=== PATIENT | male | born 1990 | race Caucasian/White ===

== ENCOUNTER 2021-08-29 19:32 | Emergency (ER) | payer OTHER ==
[2021-08-29] MEDS ORDERED: SODIUM CHLORIDE 0.9% 1,000 ML IV STA (19:37)
[2021-08-29] MEDS ORDERED: LORazepam 2 MG/ML INJ IV STA (19:37)
--- NOTE | 2021-08-29 19:41 | ED ---
Seizure HPI - General Stated Complaint: Seizure Time Seen by Provider: 08/29/21 19:33 Source: patient, EMS, RN notes reviewed - History of Present Illness Initial Comments: This is a pleasant 31-year-old male who is currently at rehabilitation at [facility] for heroin use. Patient states she has been there for 3 days. Patient states he has not used for 3 days. Patient has no history of seizure disorder but states he was getting ready to go have a cigarette. He states that Sil[place] he remembers. Patient barely had 2 witnessed seizure activities, lasting about 1 minute and then at 1842 another one lasting about 5 minutes. This was tonic-clonic activity. Patient did have several minutes of postictal state. Patient denies any pain. Denying any head injury. Patient states he did fall during seizure may have hit his head. No vision or hearing disturbance. No numbness or tingling. No focal neurologic deficits. No headache, no fever or chills, no changes in vision or hearing, no sore throat or difficulty with speech, no neck pain, no chest pain or shortness of breath, no abdominal pain, no nausea or vomiting, no changes in urination or bowel movements, no numbness or tingling, no extremity pain, no skin rashes or lesions. MD Complaint: seizure - Related Data Home Medications Medication Instructions Recorded Confirmed Acetaminophen Tab [Tylenol] 650 mg PO TID PRN 08/29/21 08/29/21 Calcium, Magnesium, Zinc, With 1 tab PO TID PRN 08/29/21 08/29/21 Vitamin D3 Chlorpheniramine Maleate 4 mg PO Q4H PRN 08/29/21 08/29/21 Hyoscyamine Sulfate [Levsin] 0.125 mg PO QID PRN 08/29/21 08/29/21 Ibuprofen [Motrin Ib] 600 mg PO Q6H PRN 08/29/21 08/29/21 Loperamide HCl [Imodium A-D] 4 mg PO QID PRN 08/29/21 08/29/21 Multivitamins, Thera [Multivitamin 1 tab PO DAILY PRN 08/29/21 08/29/21 (formulary)] Thiamine HCl [Vitamin B-1] 100 mg PO DAILY PRN 08/29/21 08/29/21 buprenorphine HCL [Subutex] See Protocol SUBLINGUAL DIRECTED 08/29/21 08/29/21 cloNIDine HCL [Catapres] 0.1 mg PO DAILY PRN 08/29/21 08/29/21 ondansetron HCL [Zofran] 8 mg PO Q6H PRN 08/29/21 08/29/21 Allergies Allergy/AdvReac Type Severity Reaction Status Date / Time No Known Allergies Allergy Verified 08/29/21 21:08 Review of Systems ROS Statement: Those systems with pertinent positive or pertinent negative responses have been documented in the HPI. ROS Other: All systems not noted in ROS Statement are negative. General Exam Limitations: no limitations General appearance: alert, in no apparent distress Head exam: Present: atraumatic, normocephalic, normal inspection Eye exam: Present: normal appearance, PERRL, EOMI. Absent: scleral icterus, conjunctival injection, nystagmus, periorbital swelling, periorbital tenderness ENT exam: Present: normal exam, normal oropharynx, mucous membranes moist, TM's normal bilaterally, normal external ear exam. Absent: mucous membranes dry Neck exam: Present: normal inspection, full ROM. Absent: tenderness, meningismus, lymphadenopathy Respiratory exam: Present: normal lung sounds bilaterally. Absent: respiratory distress, wheezes, rales, rhonchi, stridor, chest wall tenderness, accessory muscle use, decreased breath sounds, prolonged expiratory Cardiovascular Exam: Present: regular rate, normal rhythm, normal heart sounds. Absent: systolic murmur, diastolic murmur, rubs, gallop, clicks GI/Abdominal exam: Present: soft, normal bowel sounds. Absent: distended, tenderness, guarding, rebound, rigid Extremities exam: Present: normal inspection, full ROM, normal capillary refill. Absent: tenderness, pedal edema, joint swelling, calf tenderness Back exam: Present: normal inspection, full ROM. Absent: tenderness, CVA tenderness (R), CVA tenderness (L), muscle spasm, paraspinal tenderness, vertebral tenderness, rash noted Neurological exam: Present: alert, oriented X3, CN II-XII intact, normal gait. Absent: altered, abnormal gait, motor sensory deficit, reflexes normal Psychiatric exam: Present: normal affect, normal mood. Absent: depressed, anxious, flat affect Skin exam: Present: warm, dry, intact, normal color. Absent: rash Course Vital Signs 08/29/21 08/29/21 19:33 19:42 Temperature 97.5 F L Pulse Rate 99 86 Respiratory 18 18 Rate Blood Pressure 128/84 120/78 O2 Sat by Pulse 96 96 Oximetry - Reevaluation(s) Reevaluation #1: 08/29/21 21:15 Medical record is reviewed Symptoms are improved here in the emergency department Patient is informed of results and questions answered Patient in no distress Repeat neurological evaluation is intact. Cranial nerves II through XII intact. No focal neurologic findings. Gile Coma Scale is 15. Medical Decision Making - Medical Decision Making New-onset seizure activity an inpatient currently at rehabilitation for 3 days. History of heroin abuse. No history of seizure disorder. Neurologically intact on initial evaluation. The case was discussed in detail with ED attending physician. Presentation, findings, treatment plan discussed in detail--Dr. Kristine spear until cleared by the neurologist. Patient was told to return to the ER for any signs or symptoms worsen. Told to return immediately if any other problems arise. All questions answered. Treatment plan discussed. Patient in agreement Every effort has been made to ensure accuracy of this dictation. However, due to the limitations of electronic medical records and dictation devices, errors in charting still occur. Discussed the patient's CT findings with him. We'll have him follow-up with neurology. I don't think there is anything to do acutely. - Lab Data Result diagrams: 08/29/21 19:47 08/29/21 19:47 Lab Results 08/29/21 08/29/21 08/29/21 Range/Units 19:47 19:47 20:22 WBC 4.1 (3.8-10.6) k/uL RBC 4.06 L (4.30-5.90) m/uL Hgb 12.2 L (13.0-17.5) gm/dL Hct 37.1 L (39.0-53.0) % MCV 91.4 (80.0-100.0) fL MCH 30.1 (25.0-35.0) pg MCHC 32.9 (31.0-37.0) g/dL RDW 14.9 (11.5-15.5) % Plt Count 279 (150-450) k/uL MPV 8.8 Neutrophils % 59 % Lymphocytes % 31 % Monocytes % 6 % Eosinophils % 1 % Basophils % 1 % Neutrophils # 2.4 (1.3-7.7) k/uL Lymphocytes # 1.3 (1.0-4.8) k/uL Monocytes # 0.3 (0-1.0) k/uL Eosinophils # 0.0 (0-0.7) k/uL Basophils # 0.0 (0-0.2) k/uL Sodium 139 (137-145) mmol/L Potassium 4.0 (3.5-5.1) mmol/L Chloride 103 (98-107) mmol/L Carbon Dioxide 27 (22-30) mmol/L Anion Gap 9 mmol/L BUN 17 (9-20) mg/dL Creatinine 0.77 (0.66-1.25) mg/dL Est GFR (CKD-EPI)AfAm >90 (>60 ml/min/1.73 sqM) Est GFR (CKD-EPI)NonAf >90 (>60 ml/min/1.73 sqM) Glucose 137 H (74-99) mg/dL Calcium 9.8 (8.4-10.2) mg/dL Magnesium 1.9 (1.6-2.3) mg/dL Total Bilirubin 0.6 (0.2-1.3) mg/dL AST 30 (17-59) U/L ALT 27 (4-49) U/L Alkaline Phosphatase 104 (38-126) U/L Total Protein 7.7 (6.3-8.2) g/dL Albumin 4.3 (3.5-5.0) g/dL Urine Color Yellow Urine Appearance Clear (Clear) Urine pH 7.0 (5.0-8.0) Ur Specific [place] 1.016 (1.001-1.035) Urine Protein Trace H (Negative) Urine Glucose (UA) Negative (Negative) Urine Ketones Negative (Negative) Urine Blood Negative (Negative) Urine Nitrite Negative (Negative) Urine Bilirubin Negative (Negative) Urine Urobilinogen <2.0 (<2.0) mg/dL Ur Leukocyte Esterase Negative (Negative) Urine Opiates Screen Not Detected (NotDetected) Ur Oxycodone Screen Not Detected (NotDetected) Urine Methadone Screen Not Detected (NotDetected) Ur Propoxyphene Screen Not Detected (NotDetected) Ur Barbiturates Screen Not Detected (NotDetected) U Tricyclic Antidepress Not Detected (NotDetected) Ur Phencyclidine Scrn Not Detected (NotDetected) Ur Amphetamines Screen Not Detected (NotDetected) U Methamphetamines Scrn Not Detected (NotDetected) U Benzodiazepines Scrn Detected H (NotDetected) Urine Cocaine Screen Not Detected (NotDetected) U Marijuana (THC) Screen Detected H (NotDetected) Serum Alcohol <10 mg/dL - EKG Data -: EKG Interpreted by Me (As well as ED attending physician at 9:47 PM.) EKG shows normal: sinus rhythm, axis (Normal), intervals (Normal), QRS complexes (Normal), ST-T waves (No acute changes) Rate: normal (90 bpm) - Radiology Data Radiology results: report reviewed (No acute intracranial abnormality. Slightly prominent temporal horns, lateral ventricles of unknown clinical significance. Correlation with brain MRI may be beneficial according to radiology.), image reviewed Disposition Clinical Impression: Witnessed seizure-like activity, Normocytic anemia Disposition: HOME SELF-CARE Condition: Stable Instructions (If sedation given, give patient instructions): New-Onset Seizure in Adults (ED) Additional Instructions: Call tomorrow morning to make a follow-up appointment with the neurologist as discussed. No driving a vehicle until cleared by neurology. Follow-up with your regular physician as directed. Return to the ER immediately if any symptoms worsen, new symptoms arise, or any other problems develop. Is patient prescribed a controlled substance at d/c from ED?: No Referrals: Abilio Hussein MD [REFERRING] - 1-2 days Time of Disposition: 21:32
[2021-08-29 19:42] VITALS: RESP 18
[2021-08-29 19:55] LABS: Basophils % (A) 1 %; Eosinophils % (A) 1 %; HCT 37.1 % (39.0-53.0); HGB 12.2 gm/dL (13.0-17.5); Lymphocytes # (A) 1.3 k/uL (1.0-4.8); Lymphocytes % (A) 31 %; MCH 30.1 pg (25.0-35.0); MCHC 32.9 g/dL (31.0-37.0); MCV 91.4 fL (80.0-100.0); Mean Platelet Volume 8.8; Monocytes # (A) 0.3 k/uL (0-1.0); Monocytes % (A) 6 %; Neutrophils # (A) 2.4 k/uL (1.3-7.7); Neutrophils % (A) 59 %; Platelet Count 279 k/uL (150-450); RBC 4.06 m/uL (4.30-5.90); RDW 14.9 % (11.5-15.5); WBC 4.1 k/uL (3.8-10.6)
[2021-08-29 20:10] LABS: ALT 27 U/L (4-49); AST 30 U/L (17-59); African American GFR (CKD) >90 (>60 ml/min/1.73 sqM); Albumin 4.3 g/dL (3.5-5.0); Alcohol <10 mg/dL; Alkaline Phosphatase 104 U/L (38-126); Anion Gap 9 mmol/L; Blood Urea Nitrogen 17 mg/dL (9-20); Calcium 9.8 mg/dL (8.4-10.2); Carbon Dioxide 27 mmol/L (22-30); Chloride 103 mmol/L (98-107); Glucose 137 mg/dL (74-99); Magnesium 1.9 mg/dL (1.6-2.3); Non-African American GFR(CKD) >90 (>60 ml/min/1.73 sqM); Sodium 139 mmol/L (137-145); Total Bilirubin 0.6 mg/dL (0.2-1.3); Total Protein 7.7 g/dL (6.3-8.2)
--- NOTE | 2021-08-29 20:30 | XR ---
EXAMINATION TYPE: XR chest 1V portable DATE OF EXAM: 08/29/2021 COMPARISON: NONE HISTORY: 31 years Male. STUDY INDICATION GIVEN: Seizure activity . TECHNIQUE: Frontal chest radiograph IMPRESSION: No focal airspace disease, pneumothorax or pleural effusion. The cardiomediastinal silhouette is normal in appearance. No acute osseous abnormalities seen.
[2021-08-29 20:33] LABS: Appearance,Urine Clear (Clear); Bilirubin,Urine Negative (Negative); Blood,Urine Negative (Negative); Color,Urine Yellow; Glucose,Urine (UA) Negative (Negative); Ketones,Urine Negative (Negative); Leukocyte Esterase,Urine Negative (Negative); Nitrite,Urine Negative (Negative); Protein,Urine Trace (Negative); Specific Gravity,Urine 1.016 (1.001-1.035); Urobilinogen,Urine <2.0 mg/dL (<2.0)
[2021-08-29 20:47] LABS: Amphetamine Screen,Urine Not Detected (NotDetected); Barbiturate Screen,Urine Not Detected (NotDetected); Benzodiazepines Screen,Urine Detected (NotDetected); Cocaine Screen,Urine Not Detected (NotDetected); Methadone Screen, Urine Not Detected (NotDetected); Opiate Screen,Urine Not Detected (NotDetected); Oxycodone Screen, Urine Not Detected (NotDetected); Phencyclidine Screen,Urine Not Detected (NotDetected); Tricyclic Antidepressant,Urine Not Detected (NotDetected); Urn Cannabinoid Scrn Detected (NotDetected)
[2021-08-29] MEDS ORDERED: IBUPROFEN 400 MG TAB PO STA (20:59)
[2021-08-29] MEDS ORDERED: ACETAMINOPHEN TAB 500 MG TAB PO STA (20:59)
--- NOTE | 2021-08-29 21:08 | CT ---
EXAMINATION TYPE: CT brain wo con DATE OF EXAM: 08/29/2021 COMPARISON: None HISTORY: seizure TECHNIQUE: CT scan of the performed without contrast CT DLP: 1158.4 mGycm Automated exposure control for dose reduction was used. FINDINGS: No acute intracranial hemorrhage, midline shift or mass effect. Slightly prominent temporal horns of lateral ventricles. Basilar cisterns and remaining CSF spaces ar e maintained. Donahue-white matter differentiation is preserved. No acute orbital, osseous or soft tissue abnormalities. Fluid levels seen in the paranasal sinuses. Mucus retention cyst seen in the left maxillary sinus. IMPRESSION: NO ACUTE INTRACRANIAL ABNORMALITY. SLIGHTLY PROMINENT TEMPORAL HORNS LATERAL VENTRICLES OF UNKNOWN CLINICAL SIGNIFICANCE, CORRELATION WI TH BRAIN MRI MAY BE BENEFICIAL.
[2021-08-29 21:56] VITALS: BP 114/66; PULSE 65; TEMP 98.7
== END 2021-08-29 22:09 | disposition home or self-care (01) ==
LOC: EC 19:32
DX: R56.9 Unspecified convulsions (principal); D64.9 Anemia, unspecified
CPT/HCPCS: 36415; 93005; 80053; 83735; 85025; 81003; 80306; 71045; 70450; 99285; 96374; 96361; G0480; J2060; 80320